=== PATIENT | female | born 1945 | race Caucasian/White ===

== ENCOUNTER → 2016-09-03 | Outpatient (CLI) | payer BC ==
[~2016-09-03] MED LIST: LEVAQUIN500 MG PO
== END ==
LOC: KOH-I 09:43
DX: M54.2 Cervicalgia (principal); M47.892 Other spondylosis, cervical region; M50.31 Other cervical disc degeneration, high cervical region; M99.71 Connective tissue and disc stenosis of intervertebral foramina of cervical region
CPT/HCPCS: 72125

== ENCOUNTER → 2020-08-09 | Outpatient (CLI) | payer BC ==
[~2020-08-09] MED LIST changes: +ALPRAZOLAM0.5 MG PO; +BACK & BODY PA1 EACH PO; +CLIND PH-BENZOY45 GM TP; +CLOBETASOL EMO100 GM TP; +CORDARONE 200M200 MG PO; +CYCLOBENZAPRINE10 MG PO; +DIGOXIN125 MCG PO; +ELIQUIS2.5 MG PO; +ESSENTIAL DAIL1 EACH PO; +IMDUR ER TAB 3030 MG PO; +KLOR-CON 1010 MEQ PO; +LASIX20 MG PO; +LOPRESSOR 25 MG25 MG PO; +MULTIVITAMINS1 EAC1 PO; +NITROSTAT0.4 MG SL; +OMEPRAZOLE20 MG PO; +OXYCODONE HCL10 MG PO; +PERCOCET 10-321 EACH PO; +PERCOCET 5-3251 EACH PO; +PRISTIQ ER50 MG PO; +PROTONIX40 MG PO; +RANEXA500 MG PO; +ROXICODONE5 MG PO; +ULTRAM50 MG PO; +ZOFRAN ODT 4 MG4 MG PO; +ZYRTEC10 M3 PO
== END ==
LOC: EXRD 14:03
DX: L40.50 Arthropathic psoriasis, unspecified (principal)
CPT/HCPCS: 73130

== ENCOUNTER → 2020-08-10 | Outpatient (CLI) | payer BC | LOC: RAD 07:16 | DX: M47.22 Other spondylosis with radiculopathy, cervical region (principal); M47.812 Spondylosis without myelopathy or radiculopathy, cervical region | CPT/HCPCS: 36415; 82565; Q9967 ==

== ENCOUNTER → 2021-01-04 | Outpatient (CLI) | payer BC | LOC: HEART 5 08:24 | DX: R06.02 Shortness of breath (principal); Z79.899 Other long term (current) drug therapy | CPT/HCPCS: 94060; 94729 ==

== ENCOUNTER 2021-09-18 19:18 | Emergency (ER) | payer BC ==
[2021-09-18 21:29] LABS: HEMOGLOBIN 14.5 gm/dl (12.3-15.3); RED BLOOD COUNT 5.01 M/UL (4.00-5.10); WHITE BLOOD COUNT 10.8 K/UL (4.5-11.0)
[2021-09-19] MEDS ORDERED: ZOFRAN ODT 4 MG4 MG SL (01:00)
== END 2021-09-19 01:08 | disposition home or self-care (01) ==
LOC: ER1 19:18
PROVIDERS: Student in an Organized Health Care Education/Training Program
DX: R10.9 Unspecified abdominal pain (principal); R11.2 Nausea with vomiting, unspecified; Z95.0 Presence of cardiac pacemaker; Z90.710 Acquired absence of both cervix and uterus; Z98.84 Bariatric surgery status
CPT/HCPCS: 80053; 81001; 83690; 85025; 96374; 99284; J2405

== ENCOUNTER → 2021-10-25 | Outpatient (CLI) | payer BC ==
[~2021-10-25] MED LIST changes: +ZOFRAN ODT 4 MG4 MG SL
== END ==
LOC: HEART 5 08:00
DX: I25.119 Atherosclerotic heart disease of native coronary artery with unspecified angina pectoris (principal); I10 Essential (primary) hypertension; R60.9 Edema, unspecified; R53.83 Other fatigue; R06.02 Shortness of breath; I08.3 Combined rheumatic disorders of mitral, aortic and tricuspid valves
CPT/HCPCS: 78452; 93306; A9502; J2785

== ENCOUNTER → 2021-12-04 | Outpatient (CLI) | payer BC | LOC: HEART 5 11-20 14:00 | DX: R60.9 Edema, unspecified (principal); M79.606 Pain in leg, unspecified ==